=== PATIENT | male | born 1980 | race Caucasian/White ===

== ENCOUNTER 2018-06-29 11:32 | Outpatient (CLI) | payer BC ==
--- NOTE | 2018-06-29 14:59 | XRAY Report ---
Reason: CHEST PAIN,FINE CRACKLES IN LUNGS,COUGH Procedure Date: 06/29/2018 Accession Number: [id number] / [id number] Procedure: XR - Chest 2 View X-Ray CPT Code: 62719 FULL RESULT: EXAM: CHEST RADIOGRAPHY EXAM DATE: 06/29/2018 12:05 PM. CLINICAL HISTORY: Chest pain, fine crackles in lungs, cough. COMPARISON: None. TECHNIQUE: 2 views. FINDINGS: Lungs/Pleura: No focal opacities evident. No pleural effusion. No pneumothorax. Normal volumes. Mediastinum: Heart and mediastinal contours are unremarkable. Other: Mild pectus excavatum. IMPRESSION: Normal 2-view chest radiography. [facility]
== END 2018-06-29 11:33 | disposition home or self-care (01) ==
LOC: DI 11:32
PROVIDERS: ATTEND Physician Assistant Medical
DX: R07.9 Chest pain, unspecified (principal); R09.89 Other specified symptoms and signs involving the circulatory and respiratory systems; R05 Cough
CPT/HCPCS: 71046